=== PATIENT | male | born 1990 | race African-American/Black ===

== ENCOUNTER 2023-02-10 17:58 | Emergency (ER) | payer SELFPAY ==
[~2023-02-10] VITALS: Ht 177.8 cm; Wt 79.4 kg
[2023-02-10 18:08] VITALS: BP 142/80
--- NOTE | 2023-02-10 18:15 | NUR ---
[id number] [facility] C/O LLE PAIN, NOTED ABSCESS PACKED. I&D DONE LAST TUESDAY
--- NOTE | 2023-02-10 20:38 | NUR ---
Patient discharged to home in stable condition. Written and verbal after care instructions given. Patient verbalizes understanding of instruction.
== END 2023-02-10 20:39 | disposition home or self-care (01) ==
LOC: ER 18:57
DX: L02.416 Cutaneous abscess of left lower limb (principal)